=== PATIENT | female | born 1970 | race Caucasian/White ===

== ENCOUNTER 2020-07-09 01:34 | Emergency (ER) | payer BC ==
[~2020-07-09] VITALS: Ht 154.9 cm; Wt 52.2 kg
[2020-07-09] MEDS ORDERED: KETOROLAC TROMETHAMINE 60 MG/2 ML VIAL IM ONE (01:45)
[2020-07-09] MEDS ORDERED: ORPHENADRINE CITRATE 30 MG/ML VIAL IM ONE (01:45)
[2020-07-09 03:10] VITALS: BP 108/85
== END 2020-07-09 03:00 | disposition home or self-care (01) ==
LOC: ER 01:40
DX: M79.605 Pain in left leg (principal); S39.012A Strain of muscle, fascia and tendon of lower back, initial encounter; X50.1XXA Overexertion from prolonged static or awkward postures, initial encounter; Y92.002 Bathroom of unspecified non-institutional (private) residence as the place of occurrence of the external cause; F17.210 Nicotine dependence, cigarettes, uncomplicated
CPT/HCPCS: 96372; 99282; J1885; J2360